=== PATIENT | male | born 1990 | race Caucasian/White ===

== ENCOUNTER 2023-01-31 03:00 | Emergency (ER) | payer SELFPAY ==
[~2023-01-31] VITALS: Ht 175.3 cm; Wt 95.9 kg
[2023-01-31 03:17] VITALS: BP 131/79; PULSE 104; RESP 18; TEMP 98.1; O2SAT 98
[2023-01-31] MEDS: CLINDAMYCIN HCL 150MG CAPSULE PO SCH ×2 (09:00→10:20)
[2023-01-31] MEDS ORDERED: CLIN-194 MT (09:46)
[2023-01-31] MEDS ORDERED: IBUP-2029 MT (09:47)
== END 2023-01-31 10:22 | disposition home or self-care (01) ==
LOC: ER 03:00
DX: L03.211 Cellulitis of face (principal); J32.9 Chronic sinusitis, unspecified; Z68.31 Body mass index [BMI] 31.0-31.9, adult
CPT/HCPCS: 70486; 99284